=== PATIENT | female | born 2000 | race Caucasian/White ===

== ENCOUNTER 2019-01-21 02:33 | Emergency (ER) | payer BC ==
[2019-01-21] MEDS: DEXAMETHASONE 10 MG/ML 1 ML INJ PO (04:13)
== END 2019-01-21 05:33 | disposition home or self-care (01) ==
LOC: FTE 02:33
DX: H65.191 Other acute nonsuppurative otitis media, right ear (principal)
CPT/HCPCS: 87880; 99283